=== PATIENT | female | born 1995 | race African-American/Black ===

== ENCOUNTER 2017-07-12 13:21 | Emergency (ER) | payer SELFPAY ==
[~2017-07-12] VITALS: Ht 167.6 cm; Wt 75.0 kg
[2017-07-12] MEDS ORDERED: IOHEXOL-300 100 ML BOTTLE ONE (14:38)
[2017-07-12] MEDS ORDERED: SODIUM CHLORIDE 0.9% 10ML VIAL ONE (14:38)
[2017-07-12 16:04] LABS: CLARITY URINE CLEAR (CLEAR); COLOR URINE YELLOW (YELLOW); GLUCOSE URINE NEGATIVE (NEGATIVE); KETONES URINE TRACE (NEGATIVE); LEUKOCYTE ESTERASE URINE NEGATIVE (NEGATIVE); NITRITE URINE NEGATIVE (NEGATIVE); OCCULT BLOOD URINE NEGATIVE (NEGATIVE); PROTEIN URINE NEGATIVE (NEGATIVE); SPECIFIC GRAVITY URINE 1.024 (1.005-1.030); UROBILINOGEN URINE 0.2 E.U./dL (0.2-1.0)
[2017-07-12] MEDS ORDERED: KETOROLAC 60MG/2ML VIAL IM ONE (17:00)
[2017-07-12 20:27] LABS: BASOPHILS % 0.8 % (0.0-2.0); EOSINOPHILS % 0.9 % (0.0-5.0); HEMATOCRIT. 35.8 % (36.0-48.0); HEMOGLOBIN. 11.6 g/dL (12.0-16.0); LYMPHOCYTES % 47.6 % (20.0-50.0); MEAN CORPUSCULAR HEMOGLOBIN 26.5 pg (28.0-32.0); MEAN CORPUSCULAR VOLUME 81.8 fL (81.0-99.0); MONOCYTES % 12.9 % (2.0-8.0); NEUTROPHILS % 37.8 % (40.0-76.0); PLATELET 177 x1000/uL (130-400); RED BLOOD CELL COUNT 4.38 mill/uL (4.2-5.4); RED CELL DISTRIBUTION WIDTH 14.8 % (11.6-14.6)
[2017-07-12 20:33] LABS: CHLORIDE 107 mEq/L (98-107)
[2017-07-12 20:36] LABS: CARBON DIOXIDE 26 mEq/L (21-32)
[2017-07-12 23:30] VITALS: BP 115/67
[2017-07-15 04:18] LABS: CHLAMYDIA TRACHOMATIS NAA Negative (Negative); NEISSERIA GONORRHOEAE NAA Negative (Negative)
== END 2017-07-12 23:30 | disposition home or self-care (01) ==
LOC: ER 14:52
DX: N83.201 Unspecified ovarian cyst, right side (principal)
CPT/HCPCS: 36415; 74177; 76830; 76856; 80053; 81003; 81025; 85025; 87210; 87491; 87591; 96372; 99285; A4216; J1885; Q9967; Z7610; 99284

== ENCOUNTER 2017-08-09 05:21 | Emergency (ER) | payer MEDICAID ==
[~2017-08-09] VITALS: Ht 167.6 cm; Wt 68.0 kg
[2017-08-09] MEDS ORDERED: LIDOCAINE HCL 1% 20ML VIAL (Pyxis) INJ INFIL ONE (08:30)
[2017-08-09 08:40] LABS: GLUCOSE URINE NEGATIVE (NEGATIVE); KETONES URINE TRACE (NEGATIVE); LEUKOCYTE ESTERASE URINE 1+ (NEGATIVE); NITRITE URINE NEGATIVE (NEGATIVE); OCCULT BLOOD URINE 3+ (NEGATIVE); PROTEIN URINE 1+ (NEGATIVE); SPECIFIC GRAVITY URINE 1.027 (1.005-1.030); UROBILINOGEN URINE 0.2 E.U./dL (0.2-1.0)
[2017-08-09 08:54] LABS: CLARITY URINE SL HAZY (CLEAR); COLOR URINE YELLOW (YELLOW)
[2017-08-09] MEDS ORDERED: KETOROLAC 60MG/2ML VIAL IM ONE (10:15)
[2017-08-09 10:30] VITALS: BP 108/69
== END 2017-08-09 10:36 | disposition home or self-care (01) ==
LOC: ER 05:21
DX: N39.0 Urinary tract infection, site not specified (principal); K59.00 Constipation, unspecified; L02.214 Cutaneous abscess of groin
CPT/HCPCS: 10060; 81001; 81025; 87086; 96372; 99284; J1885; J3490; Z7610

== ENCOUNTER 2017-09-13 12:28 | Emergency (ER) | payer MEDICAID ==
[~2017-09-13] VITALS: Ht 167.6 cm; Wt 72.0 kg
[2017-09-13 14:45] LABS: CLARITY URINE CLEAR (CLEAR); COLOR URINE DARK YELLOW (YELLOW); GLUCOSE URINE NEGATIVE (NEGATIVE); KETONES URINE 1+ (NEGATIVE); LEUKOCYTE ESTERASE URINE NEGATIVE (NEGATIVE); NITRITE URINE NEGATIVE (NEGATIVE); OCCULT BLOOD URINE NEGATIVE (NEGATIVE); PROTEIN URINE NEGATIVE (NEGATIVE); SPECIFIC GRAVITY URINE 1.029 (1.005-1.030)
[2017-09-13 16:02] LABS: CHLORIDE 108 mEq/L (98-107)
[2017-09-13 16:03] LABS: INR 1.1
[2017-09-13 16:04] LABS: BASOPHILS % 0.6 % (0.0-2.0); EOSINOPHILS % 1.4 % (0.0-5.0); HEMATOCRIT. 37.7 % (36.0-48.0); HEMOGLOBIN. 11.9 g/dL (12.0-16.0); LYMPHOCYTES % 34.9 % (20.0-50.0); MEAN CORPUSCULAR HEMOGLOBIN 26.5 pg (28.0-32.0); MEAN PLATELET VOLUME 9.5 fl (7.4-10.4); MONOCYTES % 8.8 % (2.0-8.0); NEUTROPHILS % 54.3 % (40.0-76.0); PLATELET 175 x1000/uL (130-400); RED BLOOD CELL COUNT 4.48 mill/uL (4.2-5.4); RED CELL DISTRIBUTION WIDTH 13.9 % (11.6-14.6)
[2017-09-13 16:11] LABS: CARBON DIOXIDE 25 mEq/L (21-32)
[2017-09-13] MEDS ORDERED: LIDOCAINE HCL 1% 20ML VIAL (Pyxis) INJ INFIL ONE (19:00)
[2017-09-13] MEDS ORDERED: AZITHROMYCIN 500 MG TABLET PO ONE ×2 (19:00)
[2017-09-13] MEDS ORDERED: CEFTRIAXONE SODIUM 250 MG/VIAL IM ONE (19:00)
[2017-09-13 19:42] VITALS: BP 121/60
[2017-09-18 07:13] LABS: CHLAMYDIA TRACHOMATIS NAA Negative (Negative); NEISSERIA GONORRHOEAE NAA Negative (Negative)
== END 2017-09-13 19:42 | disposition home or self-care (01) ==
LOC: ER 13:04
DX: B37.3 Candidiasis of vulva and vagina (principal); A59.09 Other urogenital trichomoniasis; R11.2 Nausea with vomiting, unspecified
CPT/HCPCS: 36415; 80053; 81003; 81025; 83690; 85025; 85610; 87210; 87491; 87591; 96372; 99284; J0696; J3490

== ENCOUNTER 2017-10-20 10:14 | Emergency (ER) | payer MEDICAID ==
[~2017-10-20] VITALS: Ht 167.6 cm; Wt 66.0 kg
[2017-10-20] MEDS ORDERED: SODIUM CHLORIDE 0.9% 500 ML IV ONE (16:58)
[2017-10-20] MEDS ORDERED: MORPHINE SULFATE 4 MG/ML CPJ (NOT FOR IM USE) IV ONE (17:00)
[2017-10-20] MEDS ORDERED: LIDOCAINE/EPINEPHR/TETRACAINE 3ML TP ONE (17:00)
[2017-10-20] MEDS ORDERED: LIDOCAINE HCL 1% 20ML VIAL (Pyxis) INJ MC ONE (17:00)
[2017-10-20 20:31] VITALS: BP 123/77
== END 2017-10-20 20:39 | disposition home or self-care (01) ==
LOC: ER 10:50
DX: K61.0 Anal abscess (principal); R10.2 Pelvic and perineal pain
CPT/HCPCS: 46050; 96361; 96374; 99285; J2270; J3490; J7030; Z7610; 56405